=== PATIENT | female | born 1945 | race Caucasian/White ===

== ENCOUNTER → 2016-11-27 | Outpatient (CLI) | payer MEDICARE, OTHER | LOC: LAB 12:24 | DX: E11.9 Type 2 diabetes mellitus without complications (principal); I25.10 Atherosclerotic heart disease of native coronary artery without angina pectoris; I48.0 Paroxysmal atrial fibrillation; J43.1 Panlobular emphysema ==

== ENCOUNTER → 2017-04-12 | Outpatient (CLI) | payer MEDICARE, OTHER | LOC: RAD 11:07 | DX: R10.84 Generalized abdominal pain (principal); E11.9 Type 2 diabetes mellitus without complications; I25.10 Atherosclerotic heart disease of native coronary artery without angina pectoris; J43.1 Panlobular emphysema; I12.9 Hypertensive chronic kidney disease with stage 1 through stage 4 chronic kidney disease, or unspecified chronic kidney disease; N18.9 Chronic kidney disease, unspecified; N39.0 Urinary tract infection, site not specified | CPT/HCPCS: Q9967 ==

== ENCOUNTER → 2017-06-06 | Outpatient (CLI) | payer MEDICARE, OTHER | LOC: LAB 14:08 | DX: I48.91 Unspecified atrial fibrillation (principal) ==

== ENCOUNTER → 2017-12-10 | Outpatient (CLI) | payer MEDICARE, OTHER ==
[2017-12-10 13:03] LABS: URINE APPEARANCE HAZY; URINE COLOR YELLOW
[2017-12-10 13:04] LABS: URINE BILIRUBIN NEGATIVE (NEGATIVE); URINE BLOOD 250 ery/uL (NEGATIVE); URINE GLUCOSE NEGATIVE (NEGATIVE); URINE KETONE NEGATIVE (NEGATIVE); URINE LEUKOCYTE ESTERASE 2+ (NEGATIVE); URINE NITRATE NEGATIVE (NEGATIVE); URINE PROTEIN(semi-quant) TRACE mg/dL (NEGATIVE); URINE UROBILINOGEN NORMAL (NORMAL)
== END ==
LOC: LAB 11:45
PROVIDERS: Internal Medicine
DX: N30.00 Acute cystitis without hematuria (principal)

== ENCOUNTER → 2018-02-04 | Outpatient (CLI) | payer MEDICARE, OTHER ==
[2018-02-04 14:12] LABS: HEMATOCRIT 38.1 % (37.0-47.0); HEMOGLOBIN 11.4 g/dL (12.5-16.0); MEAN CELL VOLUME 80 fl (78-100); MEAN CORPUSCULAR HGB CONC 30 g/dL (33-37); MEAN PLATELET VOLUME 11.3 fl (7.4-10.4); PLATELET COUNT 404 K/mm3 (130-400); RED BLOOD COUNT 4.79 M/mm3 (4.10-5.30); WHITE BLOOD COUNT 14.1 K/mm3 (4.8-10.8)
[2018-02-04 14:15] LABS: MEAN CORPUSCULAR HEMOGLOBIN 24 pg (27-31); RED CELL DISTRIBUTION WIDTH 18.4 % (11.5-14.5)
[2018-02-04 14:31] LABS: ALBUMIN 3.8 g/dL (3.5-5.0); BUN/CREATININE RATIO 20.7 (6.0-26.0); CALCIUM 7.4 mg/dL (8.4-10.2); POTASSIUM 3.9 mmol/L (3.6-5.0); TOTAL BILIRUBIN 0.5 mg/dL (0.2-1.3); TOTAL PROTEIN 6.9 g/dL (6.3-8.2)
[2018-02-04 14:35] LABS: PROTHROMBIN TIME 12.7 SECONDS (9.0-12.0)
[2018-02-04 15:20] LABS: LYMPHOCYTE 8 % (20-51); MONOCYTE 5 % (3-10); NEUTROPHILS 81 % (42-75)
[2018-02-04 15:21] LABS: ERYTHROCYTE SEDIMENTATION RATE 29 mm/hr (0-30)
== END ==
LOC: RAD 13:47
PROVIDERS: Internal Medicine
DX: R06.02 Shortness of breath (principal); E11.9 Type 2 diabetes mellitus without complications; I25.10 Atherosclerotic heart disease of native coronary artery without angina pectoris; J43.1 Panlobular emphysema

== ENCOUNTER → 2018-04-10 | Outpatient (CLI) | payer MEDICARE, OTHER ==
[2018-04-10 12:37] LABS: HEMATOCRIT 34.3 % (37.0-47.0); HEMOGLOBIN 10.2 g/dL (12.5-16.0); MEAN CELL VOLUME 79 fl (78-100); MEAN CORPUSCULAR HGB CONC 30 g/dL (33-37); MEAN PLATELET VOLUME 9.9 fl (7.4-10.4); RED BLOOD COUNT 4.35 M/mm3 (4.10-5.30); WHITE BLOOD COUNT 17.4 K/mm3 (4.8-10.8)
[2018-04-10 12:53] LABS: ALBUMIN 3.7 g/dL (3.5-5.0); BUN/CREATININE RATIO 15.3 (6.0-26.0); CALCIUM 9.1 mg/dL (8.4-10.2); MEAN CORPUSCULAR HEMOGLOBIN 23 pg (27-31); PLATELET COUNT 518 K/mm3 (130-400); POTASSIUM 3.2 mmol/L (3.6-5.0); RED CELL DISTRIBUTION WIDTH 19.4 % (11.5-14.5); TOTAL BILIRUBIN 0.8 mg/dL (0.2-1.3); TOTAL PROTEIN 6.6 g/dL (6.3-8.2)
[2018-04-10 13:10] LABS: LYMPHOCYTE 3 % (20-51); MONOCYTE 3 % (3-10); NEUTROPHILS 93 % (42-75); OVALOCYTES 1+; POLYCHROMASIA 1+
[2018-04-10 13:17] LABS: URINE APPEARANCE CLEAR; URINE BILIRUBIN NEGATIVE (NEGATIVE); URINE BLOOD NEGATIVE (NEGATIVE); URINE COLOR YELLOW; URINE GLUCOSE NEGATIVE (NEGATIVE); URINE KETONE NEGATIVE (NEGATIVE); URINE LEUKOCYTE ESTERASE NEGATIVE (NEGATIVE); URINE NITRATE NEGATIVE (NEGATIVE); URINE PROTEIN(semi-quant) NEGATIVE (NEGATIVE); URINE UROBILINOGEN NORMAL (NORMAL)
== END ==
LOC: LAB 12:20
PROVIDERS: Internal Medicine
DX: E11.9 Type 2 diabetes mellitus without complications (principal); I48.0 Paroxysmal atrial fibrillation; D50.8 Other iron deficiency anemias; J43.1 Panlobular emphysema

== ENCOUNTER 2018-11-07 15:26 | Inpatient (IN) | payer MEDICARE, OTHER ==
[~2018-11-07] VITALS: Ht 149.9 cm; Wt 72.9 kg
[2018-11-07 15:47] VITALS: BP 153/85
[2018-11-07] MEDS ORDERED: PREDNISONE10 MG PO (16:03)
[2018-11-07] MEDS ORDERED: ANORO ELLIPTA1 POW IH (16:04)
[2018-11-07] MEDS ORDERED: ZYRTEC10 M3 PO (16:05)
[2018-11-07] MEDS ORDERED: BETAPACE80 M1 PO (16:07)
[2018-11-07] MEDS ORDERED: TORSEMIDE5 MG PO (16:07)
[2018-11-07] MEDS ORDERED: TYLENOL EXTRA500 M2 PO (16:08)
[2018-11-07] MEDS ORDERED: ZESTRIL5 M1 PO (16:13)
[2018-11-07] MEDS ORDERED: RANITIDINE HCL300 M1 PO (16:13)
[2018-11-07] MEDS ORDERED: SINGULAIR 110 MG/TAB PO (16:14)
[2018-11-07] MEDS ORDERED: POTASSIUM CHLO10 ME8 PO (16:26)
[2018-11-07 16:27] VITALS: BP 153/85
[2018-11-07] MEDS ORDERED: ATORVASTATIN CA20 MG PO (16:27)
[2018-11-07] MEDS ORDERED: WARFARIN SODIUM1 MG PO (16:29)
[2018-11-07] MEDS ORDERED: PROAIR HFA0.09 MG/AC IH (16:34)
[2018-11-07] MEDS ORDERED: CYCLOBENZ5 MG PO (16:36)
[2018-11-07] MEDS ORDERED: ZOFRAN4 M2 PO (16:45)
[2018-11-07] MEDS ORDERED: TRAMADOL 50 MG TAB PO (16:45)
[2018-11-07] MEDS ORDERED: IPRATROPIUM BROM3 M1 IH (16:46)
[2018-11-07 18:24] VITALS: BP 119/53
[2018-11-07 21:28] LABS: URINE APPEARANCE CLEAR; URINE COLOR YELLOW
[2018-11-07 21:29] LABS: PH-URINE 6.5 (5.0 - 8.0); URINE BILIRUBIN NEGATIVE (NEGATIVE); URINE BLOOD TRACE (NEGATIVE); URINE GLUCOSE NEGATIVE (NEGATIVE); URINE KETONE NEGATIVE (NEGATIVE); URINE LEUKOCYTE ESTERASE NEGATIVE (NEGATIVE); URINE NITRATE NEGATIVE (NEGATIVE); URINE PROTEIN(semi-quant) TRACE mg/dL (NEGATIVE); URINE UROBILINOGEN NORMAL (NORMAL); URINE WBC 0-1 /hpf (0-3)
[2018-11-07 23:10] VITALS: BP 145/74
[2018-11-08 03:00] VITALS: BP 117/74
[2018-11-08 06:33] VITALS: BP 128/84
[2018-11-08 07:40] LABS: HEMATOCRIT 38.7 % (37.0-47.0); HEMOGLOBIN 11.1 g/dL (12.5-16.0); MEAN CELL VOLUME 83 fl (78-100); MEAN PLATELET VOLUME 11.7 fl (7.4-10.4); PLATELET COUNT 268 K/mm3 (130-400); RED BLOOD COUNT 4.69 M/mm3 (4.10-5.30); WHITE BLOOD COUNT 6.8 K/mm3 (4.8-10.8)
[2018-11-08 07:49] LABS: ALBUMIN 3.5 g/dL (3.5-5.0); CALCIUM 8.6 mg/dL (8.4-10.2); POTASSIUM 3.5 mmol/L (3.6-5.0); TOTAL BILIRUBIN 0.4 mg/dL (0.2-1.3); TOTAL PROTEIN 5.8 g/dL (6.3-8.2)
[2018-11-08 07:55] LABS: MEAN CORPUSCULAR HEMOGLOBIN 24 pg (27-31); MEAN CORPUSCULAR HGB CONC 29 g/dL (33-37); RED CELL DISTRIBUTION WIDTH 20.6 % (11.5-14.5)
[2018-11-08 08:03] LABS: PROTHROMBIN TIME 19.7 SECONDS (9.0-12.0)
[2018-11-08 08:30] LABS: LYMPHOCYTE 9 % (20-51); MONOCYTE 1 % (3-10); NEUTROPHILS 90 % (42-75)
[2018-11-08 08:31] LABS: HYPOCHROMIA 1+; POLYCHROMASIA 1+
[2018-11-08] MEDS ORDERED: BETAPACE120 M1 PO (09:11)
[2018-11-08] MEDS ORDERED: COUMADIN 2MG2 MG/TAB PO (09:12)
[2018-11-08] MEDS ORDERED: ADULT ASPIRIN81 MG PO (09:16)
[2018-11-08 11:07] VITALS: BP 110/73
[2018-11-08 15:12] VITALS: BP 115/75
[2018-11-08 18:27] VITALS: BP 116/76
[2018-11-08 23:18] VITALS: BP 140/72
[2018-11-09 02:31] VITALS: BP 145/84
[2018-11-09 06:25] VITALS: BP 144/81
[2018-11-09 10:55] VITALS: BP 134/82
[2018-11-09 15:20] VITALS: BP 145/77
[2018-11-09 17:52] VITALS: BP 128/57
[2018-11-09 22:32] VITALS: BP 147/78
[2018-11-10 02:50] VITALS: BP 132/84
[2018-11-10 06:20] VITALS: BP 139/80
[2018-11-10 07:22] LABS: HEMATOCRIT 37.3 % (37.0-47.0); MEAN CELL VOLUME 82 fl (78-100); MEAN CORPUSCULAR HGB CONC 30 g/dL (33-37); PLATELET COUNT 204 K/mm3 (130-400); RED BLOOD COUNT 4.53 M/mm3 (4.10-5.30); WHITE BLOOD COUNT 6.1 K/mm3 (4.8-10.8)
[2018-11-10 07:31] LABS: CALCIUM 7.7 mg/dL (8.4-10.2); POTASSIUM 3.7 mmol/L (3.6-5.0)
[2018-11-10 07:41] LABS: MEAN CORPUSCULAR HEMOGLOBIN 24 pg (27-31); MEAN PLATELET VOLUME 12.2 fl (7.4-10.4); RED CELL DISTRIBUTION WIDTH 20.3 % (11.5-14.5)
[2018-11-10 08:05] LABS: BAND 1 % (0-10); LYMPHOCYTE 6 % (20-51); MONOCYTE 4 % (3-10); NEUTROPHILS 89 % (42-75)
[2018-11-10 08:06] LABS: MICROCYTOSIS 1+; OVALOCYTES 2+
[2018-11-10 08:59] LABS: PROTHROMBIN TIME 38.1 SECONDS (9.0-12.0)
[2018-11-10 11:11] VITALS: BP 132/74
[2018-11-10 15:15] VITALS: BP 162/82
[2018-11-10 18:17] VITALS: BP 154/84
[2018-11-10 23:04] VITALS: BP 151/80
[2018-11-11 02:50] VITALS: BP 163/84
[2018-11-11 06:19] VITALS: BP 158/71
[2018-11-11 07:15] LABS: PROTHROMBIN TIME 39.8 SECONDS (9.0-12.0)
[2018-11-11] MEDS ORDERED: TUSSIONEX PENN115 ML PO (08:10)
[2018-11-11] MEDS ORDERED: PREDNISONE20 M1 PO ×2 (08:10→08:49)
[2018-11-11] MEDS ORDERED: CEFDINIR300 MG PO ×2 (08:10→08:49)
== END 2018-11-11 10:39 | disposition home or self-care (01) | DRG 194 ==
LOC: MED/SURG 15:26
PROVIDERS: Family Medicine; ADMIT Nurse Practitioner Primary Care
DX: J18.9 Pneumonia, unspecified organism (principal); J44.0 Chronic obstructive pulmonary disease with (acute) lower respiratory infection; J44.1 Chronic obstructive pulmonary disease with (acute) exacerbation; I25.10 Atherosclerotic heart disease of native coronary artery without angina pectoris; I10 Essential (primary) hypertension; I48.91 Unspecified atrial fibrillation; Z95.5 Presence of coronary angioplasty implant and graft; Z95.0 Presence of cardiac pacemaker; Z79.01 Long term (current) use of anticoagulants; Z87.891 Personal history of nicotine dependence; Z99.81 Dependence on supplemental oxygen
CPT/HCPCS: A4216; J0696; J2930; J7050

== ENCOUNTER → 2019-01-26 | Outpatient (CLI) | payer MEDICARE, OTHER ==
[~2019-01-26] MED LIST: ADULT ASPIRIN81 MG PO; ANORO ELLIPTA1 POW IH; ATORVASTATIN CA20 MG PO; BETAPACE120 M1 PO; BETAPACE80 M1 PO; CEFDINIR300 MG PO; COUMADIN 2MG2 MG/TAB PO; CYCLOBENZ5 MG PO; IPRATROPIUM BROM3 M1 IH; POTASSIUM CHLO10 ME8 PO; PREDNISONE10 MG PO; PREDNISONE20 M1 PO; PROAIR HFA0.09 MG/AC IH; RANITIDINE HCL300 M1 PO; SINGULAIR 110 MG/TAB PO; TORSEMIDE5 MG PO; TRAMADOL 50 MG TAB PO; TUSSIONEX PENN115 ML PO; TYLENOL EXTRA500 M2 PO; WARFARIN SODIUM1 MG PO; ZESTRIL5 M1 PO; ZOFRAN4 M2 PO; ZYRTEC10 M3 PO
[2019-01-26 15:39] LABS: HEMATOCRIT 40.7 % (37.0-47.0); HEMOGLOBIN 11.9 g/dL (12.5-16.0); MEAN CELL VOLUME 89 fl (78-100); MEAN CORPUSCULAR HEMOGLOBIN 26 pg (27-31); MEAN PLATELET VOLUME 10.4 fl (7.4-10.4); PLATELET COUNT 439 K/mm3 (130-400); WHITE BLOOD COUNT 11.8 K/mm3 (4.8-10.8)
[2019-01-26 15:58] LABS: PROTHROMBIN TIME 30.6 SECONDS (9.0-12.0)
[2019-01-26 16:16] LABS: MEAN CORPUSCULAR HGB CONC 29 g/dL (33-37); RED CELL DISTRIBUTION WIDTH 21.6 % (11.5-14.5)
[2019-01-26 16:44] LABS: NEUTROPHILS 90 % (42-75)
[2019-01-26 16:45] LABS: LYMPHOCYTE 5 % (20-51); MONOCYTE 3 % (3-10)
[2019-01-26 16:51] LABS: ALBUMIN 3.9 g/dL (3.4-4.8); CALCIUM 8.6 mg/dL (8.4-10.2); POTASSIUM 3.5 mmol/L (3.5-5.1); TOTAL BILIRUBIN 0.7 mg/dL (0.2-1.2); TOTAL PROTEIN 6.2 g/dL (6.2-8.1)
== END ==
LOC: LAB 15:01
PROVIDERS: Internal Medicine
DX: J90 Pleural effusion, not elsewhere classified (principal); R65.21 Severe sepsis with septic shock; E11.9 Type 2 diabetes mellitus without complications; I46.9 Cardiac arrest, cause unspecified

== ENCOUNTER → 2019-07-06 | Outpatient (CLI) | payer MEDICARE, OTHER ==
[2019-07-06 14:38] LABS: HEMATOCRIT 50.5 % (37.0-47.0); HEMOGLOBIN 16.2 g/dL (12.5-16.0); MEAN CELL VOLUME 88 fl (78-100); MEAN CORPUSCULAR HEMOGLOBIN 28 pg (27-31); MEAN CORPUSCULAR HGB CONC 32 g/dL (33-37); MEAN PLATELET VOLUME 11.2 fl (7.4-10.4); PLATELET COUNT 320 K/mm3 (130-400); RED BLOOD COUNT 5.77 M/mm3 (4.10-5.30); WHITE BLOOD COUNT 15.1 K/mm3 (4.8-10.8)
[2019-07-06 14:41] LABS: ALBUMIN 4.5 g/dL (3.4-4.8); POTASSIUM 3.5 mmol/L (3.5-5.1)
[2019-07-06 14:43] LABS: CALCIUM 10.7 mg/dL (8.3-10.5)
[2019-07-06 14:44] LABS: PROTHROMBIN TIME 16.2 SECONDS (9.0-12.0); TOTAL PROTEIN 7.5 g/dL (6.2-8.1)
[2019-07-06 14:46] LABS: TOTAL BILIRUBIN 0.7 mg/dL (0.2-1.2)
[2019-07-06 14:57] LABS: LYMPHOCYTE 4 % (20-51); MONOCYTE 6 % (3-10); NEUTROPHILS 89 % (42-75)
== END ==
LOC: LAB 14:18
PROVIDERS: Internal Medicine
DX: R65.21 Severe sepsis with septic shock (principal); A31.8 Other mycobacterial infections; I46.9 Cardiac arrest, cause unspecified; E11.9 Type 2 diabetes mellitus without complications